=== PATIENT | male | born 1955 | race Caucasian/White ===

== ENCOUNTER 2018-06-30 12:01 | Day surgery (SDC) | payer OTHER ==
[2018-06-30] MEDS ORDERED: PROPOFOL 20 ML (13:09)
[2018-06-30] MEDS ORDERED: LIDOCAINE 2% (SDV) 5 ML INJ (13:09)
== END 2018-06-30 15:45 | disposition home or self-care (01) ==
LOC: GIL 12:01
DX: Z12.11 Encounter for screening for malignant neoplasm of colon (principal); D12.5 Benign neoplasm of sigmoid colon; K57.30 Diverticulosis of large intestine without perforation or abscess without bleeding; I10 Essential (primary) hypertension; E11.9 Type 2 diabetes mellitus without complications; Z79.84 Long term (current) use of oral hypoglycemic drugs
CPT/HCPCS: 45380; 82962; 88305